=== PATIENT | female | born 1955 | race Caucasian/White ===

== ENCOUNTER 2019-10-15 10:05 | Emergency (ER) | payer MEDICARE, BC ==
[~2019-10-15] VITALS: Ht 175.3 cm; Wt 85.0 kg
[~2019-10-15 10:05] MED LIST: ONDA8TAB9 PO; PHEN-786 PO
[2019-10-15 10:59] LABS: BASOPHILS # (AUTO) 0.1 X10'3 (0-0.2); BASOPHILS % (AUTO) 0.9 % (0-1); EOSINOPHILS # (AUTO) 0.1 X10'3 (0-0.9); EOSINOPHILS % (AUTO) 1.3 % (0-6); HEMATOCRIT 39.7 % (35.0-45.0); HEMOGLOBIN 13.8 g/dl (12.0-16.0); MEAN CORPUSCULAR HEMOGLOBIN 29.4 PG (27.0-31.0); MEAN CORPUSCULAR HGB CONC 34.7 g/dL (33.0-36.5); MEAN CORPUSCULAR VOLUME 84.7 FL (78-98); MEAN PLATELET VOLUME 7.7 FL (7.4-10.4); MONOCYTES # (AUTO) 0.6 X10'3 (0-0.9); MONOCYTES % (AUTO) 7.3 % (2-12); NEUTROPHILS # (AUTO) 4.8 X10'3 (1.8-7.7); NEUTROPHILS % (AUTO) 63.5 % (42-75); PLATELET COUNT 295 X10'3 (140-440); RED BLOOD COUNT 4.68 X10'6 (4.20-5.60); RED CELL DISTRIBUTION WIDTH 13.8 % (11.5-14.5); WHITE BLOOD COUNT 7.6 X10'3 (4.5-11.0)
[2019-10-15 11:10] LABS: ALANINE AMINOTRANSFERASE 46 U/L (12-78); ALBUMIN/GLOBULIN RATIO 1.2 (1.1-1.5); ALKALINE PHOSPHATASE 68 IU/L (46-116); ANION GAP 11 (8-16); ASPARTATE AMINO TRANSFERASE 32 U/L (10-37); BILIRUBIN,TOTAL 0.5 MG/DL (0.1-1.0); BLOOD UREA NITROGEN 17 MG/DL (7-18); BUN/CREATININE RATIO 18.3 (6.6-38.0); CALCIUM 9.5 MG/DL (8.5-10.1); CHLORIDE 106 MMOL/L (99-107); CREATININE 0.93 MG/DL (0.40-0.90); GLUCOSE 195 MG/DL (70-104); SODIUM 143 MMOL/L (135-145); TOTAL CARBON DIOXIDE 26.2 MMOL/L (24-32); TOTAL PROTEIN 7.4 G/DL (6.4-8.2); eGFR 60 ML/MIN
[2019-10-15] MEDS ORDERED: RIVA20TA PO (11:36)
[2019-10-15 11:45] VITALS: BP 146/91
== END 2019-10-15 12:27 | disposition home or self-care (01) ==
LOC: ER 10:05
DX: I48.91 Unspecified atrial fibrillation (principal); Z88.0 Allergy status to penicillin; Z88.6 Allergy status to analgesic agent; Z79.899 Other long term (current) drug therapy; Z87.440 Personal history of urinary (tract) infections; Z87.442 Personal history of urinary calculi; Z98.890 Other specified postprocedural states
CPT/HCPCS: 36415; 71045; 80053; 84484; 85025; 93005; 99284

== ENCOUNTER 2024-01-29 10:18 | Emergency (ER) | payer MEDICARE, BC ==
[~2024-01-29] VITALS: Ht 170.2 cm; Wt 86.4 kg
[~2024-01-29 10:18] MED LIST changes: +RIVA20TA PO
[2024-01-29] MEDS ORDERED: TRIA15CR61 TOP (12:25)
[2024-01-29] MEDS ORDERED: DIPH25CA83 PO (12:25)
[2024-01-29] MEDS: dexamethasone sod phosphate 10mg/ml inj PO STA (12:32)
[2024-01-29] MEDS: famotidine 20mg tablet PO ONE (12:32)
[2024-01-29] MEDS: diphenhydrAMINE 50 mg/ml inj IM ONE (12:34)
[2024-01-29 12:42] VITALS: BP 119/73; PULSE 58; RESP 17; TEMP 97.8; O2SAT 100
== END 2024-01-29 12:44 | disposition home or self-care (01) ==
LOC: ER 10:19
DX: L23.9 Allergic contact dermatitis, unspecified cause (principal); Z88.0 Allergy status to penicillin; Z88.5 Allergy status to narcotic agent; Z79.899 Other long term (current) drug therapy
CPT/HCPCS: 96372; 99283; J1100; J1200